=== PATIENT | female | born 1945 | race Two or more races ===

== ENCOUNTER 2020-08-03 12:45 | Inpatient (IN) | payer OTHER ==
[~2020-08-03] VITALS: Ht 152.4 cm; Wt 57.6 kg
[2020-08-04] MEDS ORDERED: DIOVAN40 MG PO (07:48)
[2020-08-04] MEDS ORDERED: FLONASE IH (07:49)
[2020-08-04] MEDS ORDERED: ACID REDUCER20 M1 PO (07:49)
[2020-08-04] MEDS ORDERED: PEPCID PO (07:49)
[2020-08-04] MEDS ORDERED: SINGULAIR10 MG PO (07:49)
[2020-08-04] MEDS ORDERED: VENTOLIN (07:50)
[2020-08-05] MEDS ORDERED: BETAMETHASONE V15 GM (08:24)
[2020-08-05] MEDS ORDERED: WIXELA 250-501 EACH (08:25)
[2020-08-05] MEDS ORDERED: CENTRUM ADULTS1 EACH (08:25)
[2020-08-05] MEDS ORDERED: ALLERGY25 MG (08:25)
[2020-08-05] MEDS ORDERED: VITAMIN C1000 MG (08:25)
[2020-08-05] MEDS ORDERED: PEPCID20 MG (08:26)
[2020-08-05] MEDS ORDERED: FAMOTIDINE40 MG PO (08:26)
[2020-08-05] MEDS ORDERED: VENTOLIN HFA18 GM IH (08:27)
== END 2020-08-05 16:42 | disposition home or self-care (01) | DRG 747 ==
LOC: ADM 12:45 → EDSTATUS 12:45 → O/R 08-04 10:13 → SURH 08-04 12:45 → OB/GYN 08-04 20:11
PROVIDERS: ADMIT Specialist; ATTEND Specialist
PROC: 0UBMXZZ Excision of Vulva, External Approach (ICD-10-PCS; principal; 2020-08-04 14:00)
DX: D07.1 Carcinoma in situ of vulva (principal); I10 Essential (primary) hypertension

== ENCOUNTER 2024-05-29 06:27 | Day surgery (SDC) | payer OTHER ==
[~2024-05-29 06:27] MED LIST: ACID REDUCER20 M1 PO; ALLERGY25 MG; BETAMETHASONE V15 GM; CENTRUM ADULTS1 EACH; DIOVAN40 MG PO; FAMOTIDINE40 MG PO; FLONASE IH; PEPCID PO; PEPCID20 MG; SINGULAIR10 MG PO; VENTOLIN; VENTOLIN HFA18 GM IH; VITAMIN C1000 MG; WIXELA 250-501 EACH
[2024-05-29] MEDS ORDERED: METRONIDAZOLE/SODIUM CHLORIDE 500 MG/100 ML PIGGYBACK IV ONE ×2 (09:14→11:02)
[2024-05-29] MEDS ORDERED: CEFAZOLIN SODIUM 1,000 MG VIAL ONE ×2 (09:14→11:03)
[2024-05-29] MEDS ORDERED: POVIDONE-IODINE 118 ML BOTT TOP ONE (09:47)
[2024-05-29] MEDS ORDERED: MORPHINE SULFATE 4 MG/ML VIAL IV ONE ×2 (11:05→11:35)
== END 2024-05-29 13:00 | disposition home or self-care (01) ==
LOC: CIR.AMB 06:27
PROVIDERS: ATTEND Obstetrics & Gynecology Gynecologic Oncology
DX: N90.1 Moderate vulvar dysplasia (principal)